=== PATIENT | female | born 2000 | race Asian ===

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

== ENCOUNTER 2022-11-16 12:49 | Emergency (ER) | payer OTHER ==
[~2022-11-16] VITALS: Ht 167.6 cm; Wt 70.5 kg
[2022-11-16 13:30] LABS: COVID AG,FIA SOURCE NASAL SWAB
[2022-11-16 13:50] LABS: INFLUENZA TYPE B NEGATIVE FOR TYPE B (NEGATIVE)
[2022-11-16 13:53] LABS: RAPID GROUP A STREP NEGATIVE (NEGATIVE)
[2022-11-16 13:54] LABS: INFLUENZA TYPE A POSITIVE FOR TYPE A (NEGATIVE)
[2022-11-16 13:55] VITALS: BP 130/79
== END 2022-11-16 15:35 | disposition home or self-care (01) ==
LOC: EMS 12:52
DX: J10.1 Influenza due to other identified influenza virus with other respiratory manifestations (principal); Z20.822 Contact with and (suspected) exposure to COVID-19
CPT/HCPCS: 71046; 87430; 87804; 99284